=== PATIENT | female | born 1965 | race Caucasian/White ===

== ENCOUNTER 2018-08-25 11:01 | Observation (INO) | payer SELFPAY ==
[2018-08-25] MEDS ORDERED: LR 1,000 ML IV ONE (11:55)
[2018-08-25] MEDS ORDERED: MIDAZOLAM 2 MG/2 ML VIAL IVP ONE (12:03)
[2018-08-25] MEDS ORDERED: BUPIVACAINE 0.5% 30 ML SDV ONE (12:19)
[2018-08-25] MEDS ORDERED: EPINEPHrine 1 MG/ML INJ ONE (12:19)
[2018-08-25] MEDS ORDERED: LIDOCAINE 0.5% 50 ML SDV ONE (12:20)
[2018-08-25] MEDS ORDERED: BACITRACIN ZINC 0.5 OZ OINTTUBE TP ONE ×2 (12:20→15:46)
[2018-08-25] MEDS ORDERED: fentaNYL 100 MCG/2 ML INJ ONE ×3 (13:20→17:17)
[2018-08-25] MEDS ORDERED: PROPOFOL 200 MG/20 ML VIAL ONE (13:20)
[2018-08-25] MEDS ORDERED: ROCURONIUM 50 MG/5 ML VIAL ONE ×2 (13:21→14:33)
[2018-08-25] MEDS ORDERED: LIDOCAINE 2% 100 MG/5 ML SYR ONE (13:21)
[2018-08-25] MEDS ORDERED: METOCLOPRAMIDE 10 MG/2 ML VIAL ONE (13:21)
[2018-08-25] MEDS ORDERED: DEXAMETHASONE 4 MG/ML VIAL ONE ×2 (13:21)
[2018-08-25] MEDS ORDERED: PROMETHAZINE HCL 25 MG/ML INJ IVP PRN (13:22)
[2018-08-25] MEDS ORDERED: ONDANSETRON 4 MG/2 ML VIAL IVP PRN ×2 (13:22→16:46)
[2018-08-25] MEDS ORDERED: TEMAZEPAM 15 MG CAP PO PRN (13:22)
[2018-08-25] MEDS ORDERED: ceFAZolin 1 GM VIAL ONE ×2 (13:50)
[2018-08-25] MEDS ORDERED: ceFAZolin 2 GM/DEXTROSE 100 ML IV SCH (14:00)
[2018-08-25] MEDS ORDERED: ceFAZolin 2 GM/DEXTROSE 100 ML IV ONE (14:00)
[2018-08-25] MEDS ORDERED: ONDANSETRON 4 MG/2 ML VIAL ONE (15:46)
[2018-08-25] MEDS ORDERED: NEOSTIGMINE METHYLSULFATE 10 MG/10 ML MDV ONE (15:51)
[2018-08-25] MEDS ORDERED: GLYCOPYRROLATE 0.2 MG/1 ML VIAL ONE ×2 (15:51)
[2018-08-25] MEDS ORDERED: ALBUTEROL 3 ML DEYVIAL IH PRN (16:46)
[2018-08-25] MEDS ORDERED: NALOXONE HCL 0.4 MG/ML INJ IVP PRN ×2 (16:46)
[2018-08-25] MEDS ORDERED: MEPERIDINE 25 MG/0.5 ML AMP IVP PRN (16:46)
[2018-08-25] MEDS: fentaNYL 100 MCG/2 ML INJ IVP PRN ×2 (17:26→17:31)
[2018-08-25] MEDS: HYDROmorphONE/DILAUDID 1 MG/ML INJ IVP PRN ×4 (18:18→23:00)
[2018-08-25] MEDS: HYDROCODONE/APAP 5/325 TAB PO PRN (19:12)
[2018-08-25] MEDS: LR 1,000 ML IV SCH (19:15)
[2018-08-25] MEDS: metFORMIN SR 500 MG TAB PO SCH (20:31)
[2018-08-25] MEDS: LOSARTAN/HCTZ 50/12.5 1 TAB PO SCH (20:32)
[2018-08-25] MEDS: GABAPENTIN 300 MG CAP PO SCH (20:32)
[2018-08-25] MEDS: AMITRIPTYLINE HCL 25 MG TAB PO SCH (20:32)
[2018-08-25] MEDS: METOPROLOL SUCCINATE XR 100 MG TAB PO SCH (20:32)
[2018-08-25] MEDS: ceFAZolin 2 GM/DEXTROSE 100 ML IV SCH (22:10)
[2018-08-26] MEDS: LR 1,000 ML IV SCH (01:31)
[2018-08-26] MEDS: HYDROCODONE/APAP 5/325 TAB PO PRN ×5 (04:00→21:34)
[2018-08-26] MEDS: HYDROmorphONE/DILAUDID 1 MG/ML INJ IVP PRN (04:00)
[2018-08-26] MEDS: ceFAZolin 2 GM/DEXTROSE 100 ML IV SCH (05:06)
[2018-08-26] MEDS ORDERED: MAGNESIUM HYDROXIDE 30 ML UDCUP PO PRN ×3 (11:35→12:10)
[2018-08-26] MEDS ORDERED: POLYETHYLENE GLYCOL 3350 17 GM PKT PO PRN ×2 (11:38→12:10)
[2018-08-26] MEDS: SENNOSIDES 1 TAB PO PRN (13:41)
[2018-08-26] MEDS: IBUPROFEN 600 MG TAB PO PRN ×2 (14:37→20:49)
[2018-08-26] MEDS: CEPACOL LOZENGE PO PRN (15:34)
[2018-08-26] MEDS: METOPROLOL SUCCINATE XR 100 MG TAB PO SCH (20:48)
[2018-08-26] MEDS: LOSARTAN/HCTZ 50/12.5 1 TAB PO SCH (20:48)
[2018-08-26] MEDS: AMITRIPTYLINE HCL 25 MG TAB PO SCH (20:49)
[2018-08-26] MEDS: GABAPENTIN 300 MG CAP PO SCH (20:49)
[2018-08-26] MEDS: metFORMIN SR 500 MG TAB PO SCH (20:49)
[2018-08-26] MEDS: diphenhydrAMINE 25 MG CAP PO PRN (21:34)
[2018-08-27] MEDS: diphenhydrAMINE 25 MG CAP PO PRN (08:25)
[2018-08-27] MEDS: IBUPROFEN 600 MG TAB PO PRN (08:31)
[2018-08-27] MEDS: SENNOSIDES 1 TAB PO PRN (08:42)
[2018-08-27] MEDS: CEPACOL LOZENGE PO PRN (08:42)
[2018-08-27] MEDS: HYDROCODONE/APAP 5/325 TAB PO PRN (13:43)
== END 2018-08-27 14:37 | disposition home or self-care (01) ==
DX: N64.81 Ptosis of breast (principal); E88.1 Lipodystrophy, not elsewhere classified; L98.7 Excessive and redundant skin and subcutaneous tissue